=== PATIENT | female | born 1980 ===

== ENCOUNTER → 2024-04-03 06:33 | Outpatient (CLI) | payer OTHER ==
[~2024-04-03 06:33] MED LIST: PRENATAL1 TAB PO
[2024-04-03 07:49] LABS: PH,URINE 6.5 (5.0-8.0); URINE APPEARANCE Turbid; URINE BILIRRUBIN Small (NEGATIVE); URINE BLOOD Large; URINE COLOR Red; URINE GLUCOSE Negative (NEGATIVE); URINE KETONE Negative (NEGATIVE); URINE LEUKOCYTE Small; URINE NITRATE Negative; URINE UROBILINOGEN 0.2 E.U./dl
[2024-04-03 07:52] LABS: URINE CAST 0.46 uL (0.0-1.40); URINE EPITHELIAL CELLS 14.3 uL (0.0-38.8); URINE PROTEIN 100 (NEGATIVE); URINE RBC > 10558.9 uL (0.0-20.8)
[2024-04-03 08:30] LABS: PROTHROMBIN TIME 10.9 SECONDS (9.0-11.5)
[2024-04-03 09:24] LABS: ALBUMIN 3.7 gm/dL (3.4-5.0); BILIRUBIN TOTAL 0.4 mg/dL (0.3-1.2); CALCIUM 8.4 mg/dL (8.5-10.1); CREATININE SERUM 0.59 mg/dL (0.55-1.02); GFR 112.32; GLOBULINA 2.8 G/DL (2.4-3.5); POTASSIUM 4.25 mEq/L (3.5-5.1); TOTAL PROTEIN 6.5 gm/dL (6.4-8.2)
[2024-04-03 09:25] LABS: FERRITIN 5.2 NG/ML (8-252)
[2024-04-03 11:02] LABS: FOLIC ACID 5.51 ng/ml (4.78-20)
[2024-04-06 16:29] LABS: FACTOR VIII ACTIVITY 76 % (56-140); VON WILLERBRAND ACTIVITY 48 % (50-200); VON WILLERBRAND ANTIGEN 52 % (50-200)
[2024-04-07 08:28] LABS: ob NEGATIVE (NEGATIVE)
[2024-04-08 13:09] LABS: a:g ratio 1.5 (0.7-1.7); alpha 1 g 0.2 g/dL (0.0-0.4); alpha 2 0.5 g/dL (0.4-1.0); beta g 0.9 g/dL (0.7-1.3); gamma g 0.8 g/dL (0.4-1.8); globulin t 2.4 g/dL (2.2-3.9); m spike Not Observed g/dL (Not Observed)
[2024-04-11 11:54] LABS: HEMATOCRIT 34.1 % (36.0-45.00); HEMOGLOBIN 11.1 g/dL (12.0-15.00); MEAN CELL VOLUME 79.1 fL (80.00-100.00); MEAN CORPUSCULAR HEMOGLOBIN 25.7 pg (27.00-32.0); MEAN CORPUSCULAR HGB CONC 32.5 g/dl (32.0-36.0); PLATELET COUNT 224 K/uL (150-450); RED BLOOD COUNT 4.32 M/uL (4.00-6.00); RED CELL DISTRIBUTION WIDTH 16.4 % (11.5-14.5)
[2024-04-11 12:16] LABS: COL EPI 116 SECONDS (82-175)
[2024-04-13 09:42] LABS: PLATELET ESTIMATE NORMAL (NORMAL)
== END | disposition home or self-care (01) ==
LOC: LAB 06:33
DX: D68.01 Von Willebrand disease, type 1 (principal); D50.0 Iron deficiency anemia secondary to blood loss (chronic); N93.8 Other specified abnormal uterine and vaginal bleeding